=== PATIENT | female | born 1955 | race Caucasian/White ===

== ENCOUNTER 2022-12-05 12:38 | Outpatient (CLI) | payer MEDICARE | END 2022-12-05 12:39 | disposition home or self-care (01) | LOC: TBSIIMAG 12:38 | PROVIDERS: ATTEND Neurological Surgery | DX: M48.062 Spinal stenosis, lumbar region with neurogenic claudication (principal); M47.816 Spondylosis without myelopathy or radiculopathy, lumbar region; M47.817 Spondylosis without myelopathy or radiculopathy, lumbosacral region; M47.815 Spondylosis without myelopathy or radiculopathy, thoracolumbar region | CPT/HCPCS: 72148 ==

== ENCOUNTER 2022-12-19 05:37 | Inpatient (IN) | payer MEDICARE ==
[2022-12-18 10:55] VITALS: BMI 23.5
[2022-12-19] MEDS ORDERED: Neomycin-Polymyxin 1 ML AMP ONE (06:12)
[2022-12-19] MEDS ORDERED: Vancomycin 1 GM VIAL ONE (06:12)
[2022-12-19] MEDS ORDERED: Bupivacaine HCl 0.5%/Epinephrine 1:200,000/PF 30 ml Vial ONE (06:12)
[2022-12-19] MEDS ORDERED: Thrombin 5000 UNITS/5 ML VIAL ONE (06:12)
[2022-12-19] MEDS ORDERED: Sodium Chloride 0.9% 100 ML ONE (06:46)
[2022-12-19] MEDS ORDERED: CEFAZOLIN 2 GM VIAL ONE (06:46)
[2022-12-19] MEDS ORDERED: fentaNYL PF 100 MCG/2 ML SYRINGE ONE (06:53)
[2022-12-19] MEDS ORDERED: Dexmedetomidine 200 MCG/2 ML VIAL ONE (06:53)
[2022-12-19] MEDS ORDERED: HYDROcodone/Acetaminophen 7.5/325 mg Tablet PO PRN (06:58)
[2022-12-19] MEDS ORDERED: diphenhydrAMINE 50 MG/ML VIAL IVP PRN (06:58)
[2022-12-19] MEDS ORDERED: Morphine 2 MG/ML VIAL SLOW IVP PRN (06:58)
[2022-12-19] MEDS ORDERED: HYDROcodone/Acetaminophen 10/325 mg Tablet PO PRN (06:58)
[2022-12-19] MEDS ORDERED: Famotidine/PF 20 mg/2ml Vial ONE ×2 (06:59→07:00)
[2022-12-19 07:02] LABS: SARS-CoV-2 NAA Rapid Test Not Detected (NotDetected)
[2022-12-19] MEDS ORDERED: Esmolol 100 MG/10 ML VIAL ONE (07:06)
[2022-12-19] MEDS ORDERED: Lidocaine 1% PF 5 ML VIAL ONE (07:06)
[2022-12-19] MEDS ORDERED: PHENYLEPHRINE-NS 100 MCG/ML 10 ML SYRINGE ONE (07:06)
[2022-12-19] MEDS ORDERED: Rocuronium Bromide 10 MG/ML (10ML VIAL) ONE (07:06)
[2022-12-19] MEDS ORDERED: NEOSTIGMINE 3 MG/3 ML SYR 3 MG/3 ML SYRINGE ONE (07:06)
[2022-12-19] MEDS ORDERED: Ketorolac Tromethamine 30 MG/ML VIAL ONE (07:06)
[2022-12-19] MEDS ORDERED: Dexamethasone 20 MG/5 ML VIAL ONE (07:06)
[2022-12-19] MEDS ORDERED: PROPOFOL 200 MG/20 ML VIAL ONE (07:06)
[2022-12-19] MEDS ORDERED: Ondansetron PF 4 MG/2 ML Vial ONE (07:06)
[2022-12-19] MEDS ORDERED: Glycopyrrolate 0.2 MG/ML 5 ML SYRINGE ONE (07:06)
[2022-12-19] MEDS ORDERED: Fentanyl 100 MCG/2 ML VIAL ONE ×3 (11:35→12:54)
[2022-12-19] MEDS ORDERED: Ondansetron HCl/PF 4 MG/2 ML Vial IVP PRN (11:35)
[2022-12-19] MEDS ORDERED: Promethazine HCl 25 MG/ML VIAL IM PRN (11:35)
[2022-12-19] MEDS: CEFAZOLIN 2 GM in Sodium Chloride 0.9% 100 ML IVPB SCH ×2 (15:39→23:30)
[2022-12-19] MEDS: Sodium Chloride 0.9% 1,000 ML IV SCH ×2 (18:57→20:12)
[2022-12-19] MEDS: Ondansetron PF 4 MG/2 ML Vial IVP PRN (18:58)
[2022-12-20] MEDS: Ondansetron PF 4 MG/2 ML Vial IVP PRN ×2 (04:17→11:18)
[2022-12-20] MEDS: Acetaminophen 325 MG TAB PO PRN ×3 (05:44→22:43)
[2022-12-20] MEDS: tiZANidine HCl 4 MG TAB PO PRN ×2 (05:50→14:11)
[2022-12-20] MEDS: Sodium Chloride 0.9% 1,000 ML IV SCH ×3 (11:26→23:42)
[2022-12-20 18:26] LABS: #Lymphocytes 2.5 thou/uL (1.20-3.40); #Monocytes 1.2 thou/uL (0.11-0.59); #Neutrophils 8.5 thou/uL (1.40-6.50); %Basophils 0.2 % (0.0-1.0); %Eosinophils 0.2 % (0.0-10.0); %Lymphocytes 20.6 % (21.0-51.0); %Monocytes 9.7 % (0.0-10.0); %Neutrophils 69.4 % (42.0-75.0); Mean Corpuscular HGB CONC 33.1 g/dL (32.0-36.0); Mean Corpuscular Hemoglobin 30.3 pg (27.0-31.0); Mean Corpuscular Volume 91.6 fl (78.0-98.0); Mean Platelet Volume 9.2 fL (7.4-10.4); Platelet Count 197 10x3/uL (130-400); RBC Distribution Width 11.6 % (11.5-14.5); Red Blood Cell (RBC) Count 2.96 mill/uL (4.20-5.40); White Blood Cell (WBC) Count 12.3 10x3/uL (4.8-10.8)
[2022-12-20 18:45] LABS: Anion Gap 10 mmol/L (10-20); BUN (Urea Nitrogen) 7 mg/dL (9.8-20.1); Calc. Creatinine Clearance 85 mL/min (70-130); Carbon Dioxide 24 mmol/L (23-31); Chloride 99 mmol/L (98-107); Estimated GFR 94; Glucose 152 mg/dL (80-115); Potassium 3.2 mmol/L (3.5-5.1); Sodium 130 mmol/L (136-145)
[2022-12-20 18:50] LABS: Troponin I Less than 0.010 ng/mL (< 0.028)
[2022-12-20] MEDS ORDERED: Potassium Chloride 20 MEQ TAB PO SCH (21:45)
[2022-12-20 21:49] LABS: Magnesium 1.5 mg/dL (1.6-2.6); Phosphorus 2.5 mg/dL (2.3-4.7)
[2022-12-20] MEDS ORDERED: Magnesium 2 GM/50 ML(in water) 2 GM in Premix Bag 1 BAG IVPB SCH (22:00)
[2022-12-20] MEDS ORDERED: Electrolyte Replacement Protocol 1 EACH FS SCH (22:00)
[2022-12-20] MEDS ORDERED: Senokot 8.6 MG TAB PO PRN (22:15)
[2022-12-20] MEDS ORDERED: Simethicone Chewable 80 MG TAB PO PRN (22:38)
[2022-12-21] MEDS: Ondansetron PF 4 MG/2 ML Vial IVP PRN ×2 (05:42→14:12)
[2022-12-21] MEDS: tiZANidine HCl 4 MG TAB PO PRN ×2 (05:43→14:12)
[2022-12-21 07:30] LABS: #Basophils 0.1 thou/uL (0.0-0.2); #Monocytes 1.5 thou/uL (0.11-0.59); #Neutrophils 9.5 thou/uL (1.40-6.50); %Basophils 0.4 % (0.0-1.0); %Eosinophils 0.2 % (0.0-10.0); %Lymphocytes 15.2 % (21.0-51.0); %Monocytes 11.1 % (0.0-10.0); Hemoglobin 9.4 g/dL (12.0-16.0); Mean Corpuscular HGB CONC 34.3 g/dL (32.0-36.0); Mean Corpuscular Hemoglobin 31.6 pg (27.0-31.0); Mean Corpuscular Volume 91.9 fl (78.0-98.0); Mean Platelet Volume 9.4 fL (7.4-10.4); Platelet Count 178 10x3/uL (130-400); RBC Distribution Width 11.6 % (11.5-14.5); Red Blood Cell (RBC) Count 2.97 mill/uL (4.20-5.40)
[2022-12-21 08:04] LABS: Anion Gap 9 mmol/L (10-20); BUN (Urea Nitrogen) 6 mg/dL (9.8-20.1); Calc. Creatinine Clearance 84 mL/min (70-130); Calcium 7.7 mg/dL (7.8-10.44); Carbon Dioxide 24 mmol/L (23-31); Chloride 105 mmol/L (98-107); Estimated GFR 93; Glucose 114 mg/dL (80-115); Magnesium 2.1 mg/dL (1.6-2.6); Phosphorus 1.3 mg/dL (2.3-4.7); Potassium 3.8 mmol/L (3.5-5.1); Sodium 134 mmol/L (136-145)
[2022-12-21] MEDS ORDERED: Lactated Ringer's 500 ML IV SCH ×2 (08:15→16:45)
[2022-12-21] MEDS ORDERED: Sodium Phosphate 30 MMOL in Sodium Chloride 0.9% 250 ML 250 ML IVPB SCH (08:15)
[2022-12-21] MEDS: Floranex 1 GM Packet PO SCH (09:06)
[2022-12-21] MEDS ORDERED: Iopamidol-370 76% 500 ML 1 ML ONE (10:54)
[2022-12-21 11:35] LABS: Bacteria/HPF 1+ HPF (None Seen); Bilirubin Negative (Negative); Blood, Urine Negative (Negative); CAUTI Indications for Culture Dysuria,urgency,freq; Clarity Clear (Clear); Glucose, Urine (Dipstick) Normal (Negative); Ketone, Urine 20 mg/dL (Negative); Leukocyte Negative Leu/uL (Negative); Mucous/LPF Rare LPF (<2+); Nitrite Negative (Negative); Protein, Urine (Dipstick) Negative (Neg-Trace); Specific Gravity, Urine 1.013 (1.002-1.036); Urobilinogen Normal mg/dL (Less than 2); WBC/HPF 0-3 HPF (0-3)
[2022-12-21 11:36] LABS: Urine Culture Reflex No No
[2022-12-21] MEDS: Acetaminophen 325 MG TAB PO PRN ×2 (14:11→21:11)
[2022-12-21] MEDS: cefTRIAXone\\ROCEPHIN 1 GM in Sodium Chloride 0.9% 100 ML IVPB SCH (14:12)
[2022-12-21] MEDS ORDERED: Midodrine HCl 5 MG TAB PO SCH (16:45)
[2022-12-21] MEDS: Lactated Ringer's 1,000 ML IV SCH (17:12)
[2022-12-21 17:22] LABS: #Lymphocytes 3.1 thou/uL (1.20-3.40); #Monocytes 1.5 thou/uL (0.11-0.59); #Neutrophils 9.5 thou/uL (1.40-6.50); %Basophils 0.3 % (0.0-1.0); %Eosinophils 0.3 % (0.0-10.0); %Lymphocytes 21.7 % (21.0-51.0); %Monocytes 10.8 % (0.0-10.0); %Neutrophils 66.9 % (42.0-75.0); Hemoglobin 8.5 g/dL (12.0-16.0); Mean Corpuscular HGB CONC 33.1 g/dL (32.0-36.0); Mean Corpuscular Hemoglobin 30.6 pg (27.0-31.0); Mean Corpuscular Volume 92.2 fl (78.0-98.0); Mean Platelet Volume 9.5 fL (7.4-10.4); Platelet Count 184 10x3/uL (130-400); RBC Distribution Width 11.7 % (11.5-14.5); Red Blood Cell (RBC) Count 2.78 mill/uL (4.20-5.40); White Blood Cell (WBC) Count 14.2 10x3/uL (4.8-10.8)
[2022-12-21] MEDS: Midodrine HCl 5 MG TAB PO SCH (21:12)
[2022-12-21 22:41] LABS: Hemoglobin 8.6 g/dL (12.0-16.0)
[2022-12-22] MEDS: Lactated Ringer's 1,000 ML IV SCH ×3 (00:23→17:26)
[2022-12-22] MEDS: Acetaminophen/Codeine 30-300mg Tablet PO PRN ×3 (04:41→21:24)
[2022-12-22 06:13] LABS: #Eosinphils 0.2 thou/uL (0.0-0.7); #Lymphocytes 1.9 thou/uL (1.20-3.40); #Monocytes 1.1 thou/uL (0.11-0.59); #Neutrophils 8.3 thou/uL (1.40-6.50); %Basophils 0.2 % (0.0-1.0); %Eosinophils 1.4 % (0.0-10.0); %Lymphocytes 16.5 % (21.0-51.0); %Monocytes 9.3 % (0.0-10.0); %Neutrophils 72.6 % (42.0-75.0); Hemoglobin 8.7 g/dL (12.0-16.0); Mean Corpuscular HGB CONC 33.3 g/dL (32.0-36.0); Mean Corpuscular Hemoglobin 30.6 pg (27.0-31.0); Mean Corpuscular Volume 91.8 fl (78.0-98.0); Mean Platelet Volume 9.2 fL (7.4-10.4); Platelet Count 207 10x3/uL (130-400); RBC Distribution Width 11.5 % (11.5-14.5); Red Blood Cell (RBC) Count 2.83 mill/uL (4.20-5.40); White Blood Cell (WBC) Count 11.5 10x3/uL (4.8-10.8)
[2022-12-22 06:37] LABS: Anion Gap 10 mmol/L (10-20); BUN (Urea Nitrogen) 4 mg/dL (9.8-20.1); Calc. Creatinine Clearance 100 mL/min (70-130); Calcium 8.1 mg/dL (7.8-10.44); Carbon Dioxide 25 mmol/L (23-31); Chloride 104 mmol/L (98-107); Estimated GFR 100; Glucose 107 mg/dL (80-115); Potassium 3.4 mmol/L (3.5-5.1); Sodium 136 mmol/L (136-145)
[2022-12-22 06:39] LABS: Phosphorus 1.9 mg/dL (2.3-4.7)
[2022-12-22] MEDS: Floranex 1 GM Packet PO SCH (08:38)
[2022-12-22] MEDS: Midodrine HCl 5 MG TAB PO SCH ×2 (09:34→13:42)
[2022-12-22] MEDS ORDERED: Potassium Phosphate 15 MMOL in Sodium Chloride 0.9% 100 ML IVPB SCH (10:00)
[2022-12-22] MEDS: cefTRIAXone\\ROCEPHIN 1 GM in Sodium Chloride 0.9% 100 ML IVPB SCH (13:15)
[2022-12-23] MEDS: Lactated Ringer's 1,000 ML IV SCH ×2 (03:04→14:36)
[2022-12-23 06:20] LABS: Hemoglobin 8.9 g/dL (12.0-16.0); Mean Corpuscular HGB CONC 33.1 g/dL (32.0-36.0); Mean Corpuscular Hemoglobin 30.4 pg (27.0-31.0); Mean Corpuscular Volume 91.9 fl (78.0-98.0); Mean Platelet Volume 9.1 fL (7.4-10.4); Platelet Count 247 10x3/uL (130-400); RBC Distribution Width 11.5 % (11.5-14.5); Red Blood Cell (RBC) Count 2.93 mill/uL (4.20-5.40); White Blood Cell (WBC) Count 10.3 10x3/uL (4.8-10.8)
[2022-12-23 06:46] LABS: Anion Gap 10 mmol/L (10-20); BUN (Urea Nitrogen) 4 mg/dL (9.8-20.1); Calc. Creatinine Clearance 106 mL/min (70-130); Calcium 8.3 mg/dL (7.8-10.44); Carbon Dioxide 27 mmol/L (23-31); Chloride 101 mmol/L (98-107); Estimated GFR 101; Glucose 94 mg/dL (80-115); Potassium 3.3 mmol/L (3.5-5.1); Sodium 135 mmol/L (136-145)
[2022-12-23 06:48] LABS: Phosphorus 2.7 mg/dL (2.3-4.7)
[2022-12-23] MEDS: Acetaminophen/Codeine 30-300mg Tablet PO PRN ×2 (08:11→13:46)
[2022-12-23] MEDS: Floranex 1 GM Packet PO SCH (08:12)
[2022-12-23 09:31] VITALS: TEMP 98.6
[2022-12-23 12:44] VITALS: BP 137/78
[2022-12-23] MEDS: cefTRIAXone\\ROCEPHIN 1 GM in Sodium Chloride 0.9% 100 ML IVPB SCH (14:36)
== END 2022-12-23 14:05 | disposition home or self-care (01) | DRG 454 ==
LOC: SDC 05:37 → SJJU 06:58 → OBSVTOIN 12-21 12:10
PROVIDERS: ADMIT Neurological Surgery; ATTEND Neurological Surgery
PROC: 0SG00AJ Fusion of Lumbar Vertebral Joint with Interbody Fusion Device, Posterior Approach, Anterior Column, Open Approach (ICD-10-PCS; principal; 2022-12-19)
PROC: 0SG0071 Fusion of Lumbar Vertebral Joint with Autologous Tissue Substitute, Posterior Approach, Posterior Column, Open Approach (ICD-10-PCS; 2022-12-19)
PROC: 0SB20ZZ Excision of Lumbar Vertebral Disc, Open Approach (ICD-10-PCS; 2022-12-19)
PROC: 01NB0ZZ Release Lumbar Nerve, Open Approach (ICD-10-PCS; 2022-12-19)
DX: M48.062 Spinal stenosis, lumbar region with neurogenic claudication (principal); E87.1 Hypo-osmolality and hyponatremia; K91.89 Other postprocedural complications and disorders of digestive system; K56.7 Ileus, unspecified; M43.16 Spondylolisthesis, lumbar region; Z20.822 Contact with and (suspected) exposure to COVID-19; M19.90 Unspecified osteoarthritis, unspecified site; E87.6 Hypokalemia; E83.42 Hypomagnesemia; D64.9 Anemia, unspecified; D72.829 Elevated white blood cell count, unspecified; I95.1 Orthostatic hypotension; Z90.710 Acquired absence of both cervix and uterus; Z98.1 Arthrodesis status; Z82.49 Family history of ischemic heart disease and other diseases of the circulatory system; Z80.9 Family history of malignant neoplasm, unspecified; Z79.899 Other long term (current) drug therapy
CPT/HCPCS: 36415; 71045; 74018; 74177; 80048; 81001; 83735; 84100; 84484; 85025; 85027; 93005; 93010; 93970; 96365; 96366; 96367; 96375; 96376; C1713; C1768; C1776; C1889; G0378; J0696; J1100; J1885; J2272; J2405; J2704; J3010; J3370; J3475; J3490; J7050; J7120; Q9967; S0028; U0002

== ENCOUNTER 2023-02-27 09:37 | Outpatient (CLI) | payer MEDICARE | END 2023-02-27 09:38 | disposition home or self-care (01) | LOC: TBSIIMAG 09:37 | PROVIDERS: ATTEND Neurological Surgery | DX: M48.062 Spinal stenosis, lumbar region with neurogenic claudication (principal); Z98.890 Other specified postprocedural states | CPT/HCPCS: 72100 ==